=== PATIENT | male | born 1985 | race Caucasian/White ===

== ENCOUNTER 2019-07-11 15:54 | Emergency (ER) | payer MEDICAID ==
[~2019-07-11] VITALS: Ht 185.4 cm; Wt 78.1 kg
--- NOTE | 2019-07-11 18:10 | NUR ---
TO ROOM FROM LOBBY. NAD.
--- NOTE | 2019-07-11 18:28 | NUR ---
Pt ambulated to room from lobby, steady gait. Changed into gown, laying on gurney, even and unlabored respirations. Jovan Chamberlain MD at bedside assessing and discussing plan of care with pt. Pt denies any additional needs at this time. Call light within reach. VERA. GIOVANNA.
[2019-07-11 18:44] VITALS: BP 117/80
== END 2019-07-11 18:48 | disposition home or self-care (01) ==
LOC: ED 16:54
DX: R10.84 Generalized abdominal pain (principal); R11.2 Nausea with vomiting, unspecified; R19.7 Diarrhea, unspecified; M79.10 Myalgia, unspecified site
CPT/HCPCS: 99281